=== PATIENT | female | born 1945 | race Caucasian/White ===

== ENCOUNTER 2020-06-07 08:29 | Day surgery (SDC) | payer MEDICARE ==
[~2020-06-07] VITALS: Wt 123.5 kg
[~2020-06-07 08:29] MED LIST: ABAC300; ASPI81CH PO; CARV6.25 PO; CEPH500 PO; IBUHYD PO; ITRA100; ROFE25; THYR60
== END 2020-06-07 10:45 | disposition home or self-care (01) ==
LOC: ORSCSDS 08:29
PROVIDERS: Surgery
PROC: 0DBL8ZX Excision of Transverse Colon, Via Natural or Artificial Opening Endoscopic, Diagnostic (ICD-10-PCS; principal; 2020-06-07 10:00)
DX: Z12.11 Encounter for screening for malignant neoplasm of colon (principal); Z86.010 Personal history of colon polyps; D12.3 Benign neoplasm of transverse colon; I10 Essential (primary) hypertension; E03.9 Hypothyroidism, unspecified; Z87.891 Personal history of nicotine dependence; E66.01 Morbid (severe) obesity due to excess calories; Z68.41 Body mass index [BMI] 40.0-44.9, adult
CPT/HCPCS: 88305; J2704; J7120

== ENCOUNTER 2024-05-03 12:57 | Inpatient (IN) | payer MEDICARE ==
[2024-05-03] VITALS (7 sets, daily range): BP systolic 139–157; BP diastolic 64–79
[~2024-05-03] VITALS: Ht 167.6 cm; Wt 108.3 kg
[2024-05-03] MEDS ORDERED: ALLO100 PO (13:20)
[2024-05-03] MEDS ORDERED: VENLAFAXINE HCL25 MG PO (13:20)
[2024-05-03 13:38] LABS: Mean Corpuscular HGB 39.2 pg (26.0-34.0); Mean Corpuscular HGB Conc 33.8 g/dL (31.5-36.5); Mean Corpuscular Volume 116 fL (80-100); NRBC ABSOLUTE 0.02 K/mm3 (0.00-0.02); NRBC Auto 1.1 /100 WBC (0.0-0.2); RDW Standard Deviation 64.1 fL (35.1-46.3); White Blood Cell Count 1.84 K/mm3 (4.00-11.30)
[2024-05-03 13:45] LABS: Hematocrit 13.9 % (33.0-51.0); Hemoglobin 4.7 g/dL (11.5-16.0)
[2024-05-03 13:46] LABS: Platelet Count 26 K/mm3 (150-400)
[2024-05-03 13:56] LABS: Albumin, Blood 2.7 g/dL (3.4-5.0); Albumin/Globulin Ratio 0.6 (0.8-1.8); Bilirubin, Total 1.3 mg/dL (0.1-1.0); Bun/Creatinine Ratio 24.2 (12.0-20.0); Calcium, Blood 8.9 mg/dL (8.5-10.1); Creatinine, Blood 0.99 mg/dL (0.40-1.00); Globulin, Blood 4.8 g/dL (2.2-4.0); Potassium, Blood 3.7 mmol/L (3.5-5.5); Total Protein, Blood 7.5 g/dL (6.4-8.2)
[2024-05-03 14:16] LABS: BASOPHILS ABSOLUTE MAN 0.03 K/mm3 (0.00-0.23); BASOPHILS PERCENT MAN 2 % (0-2); EOSINOPHILS PERCENT MAN 0 % (0-6); LYMPHOCYTES % ATYPICAL MANUAL 2 % (0-0); LYMPHOCYTES ABSOLUTE MAN 1.39 K/mm3 (0.84-5.20); LYMPHOCYTES PERCENT MAN 74 % (21-46); MONOCYTES ABSOLUTE MAN 0.11 K/mm3 (0.16-1.47); MONOCYTES PERCENT MAN 6 % (4-13); MYELOCYTE ABSOLUTE MAN 0.03 K/mm3 (0.00-0.00); MYELOCYTE PERCENT MAN 2 % (0-0); NEUTROPHILS ABSOLUTE MAN 0.25 K/mm3 (1.96-9.15); SEG NEUTROPHILS PERCENT MAN 14 % (41-73); TOTAL CELLS COUNTED 50
[2024-05-03] MEDS ORDERED: Acetaminophen 325 MG TABLET PO PRN (14:40)
[2024-05-03] MEDS ORDERED: FLU VACC TS2024-25(6MOS UP)/PF 45 MCG/0.5 ML SYRINGE IM SCH (14:45)
[2024-05-03 15:10] LABS: Percent Saturation 35.2 % (15.0-50.0)
[2024-05-03 15:28] LABS: Thyroid Stimulating Hormone 1.57 uIU/mL (0.360-4.800)
[2024-05-03] MEDS ORDERED: HydrALAZINE HCl 20 MG / ML 1ML Vial IV PRN (15:50)
[2024-05-03] MEDS ORDERED: NS 1,000 ML IV SCH (16:30)
[2024-05-03] MEDS ORDERED: ALLO300 PO (18:09)
[2024-05-03] MEDS ORDERED: Venlafaxine HCl75 M1 PO (18:10)
--- NOTE | 2024-05-03 18:51 | NUR ---
ADMIT/SHIFT SUMMARY: PT IS A NEW ADMIT, ARRIVING FROM ER AT APPROX 1700. PT IS A&Ox4, ANSWERING QUESTIONS APPROPRIATELY, COOPERATIVE W/CARE, DENIES SOB/CP. PT OOB x1 W/SBA FOR BSC, DENIED WEAKNESS OR SOB AT THAT TIME. O2 SATS >93% ON RA. SR ON MONITOR W/RATE 80s-90s. PT ARRIVES F/ER W/ FIRST UNIT OF PRBC INFUSING, THIS FIRST UNIT IS ALMOST COMPLETE. PROVIDER CONSULTATION HAS BEEN CALLED IN. PT HAS BEEN ORIENTED TO UNIT, CURRENTLY RESTING IN ROOM W/CALL LIGHT IN REACH.
[2024-05-03] MEDS ORDERED: NS 1,000 ML BAG IV PRN (19:40)
[2024-05-03] MEDS ORDERED: NS 250 ML IV SCH (19:45)
[2024-05-03] MEDS ORDERED: Allopurinol 300 MG Tab PO SCH (21:00)
[2024-05-03] MEDS ORDERED: Venlafaxine HCl 75 MG CapCR PO SCH (21:00)
[2024-05-04] VITALS (14 sets, daily range): BP systolic 116–177; BP diastolic 48–85
[2024-05-04 00:34] LABS: Hematocrit 19.5 % (33.0-51.0); Hemoglobin 6.7 g/dL (11.5-16.0)
[2024-05-04 00:47] LABS: International Normalized Ratio 1.3; Prothrombin Time Results 13.6 Sec (9.7-11.5)
[2024-05-04] MEDS ORDERED: NS 500 ML IV SCH (01:50)
[2024-05-04] MEDS ORDERED: Furosemide 10 MG / ML 2ML Vial IV ONE (02:50)
--- NOTE | 2024-05-04 03:06 | NUR ---
UPDATE THIS RN BREAK RN FOR PRIMARY NURSE. PRIMARY NURSE NOTIFIED THIS RN THAT PT RECEIVING PRBCS, PT WITH RECENT VITAL CHANGES, INCREASE IN RESPIRATORY RATE, NEED FOR PLACEMENT OF 2 LPM, LS WHEEZE/COARSE, AND NEW COUGH. PRIMARY RN HAD ALREADY PLACED CALL TO RESIDENT. THIS RN IN ROOM TO MONITOR PATIENT AND WAIT FOR RESIDENT TO ROUND. RESIDENT ARRIVED TO ROOM, ASSESSED PT; NEW ORDERS FOR PORTABLE CXR AND 20 MG IV LASIX AND RN TO CONTINUE MONITORING AND TO NOTIFY IF ANY OTHER CHANGES.
--- NOTE | 2024-05-04 03:26 | NUR ---
SHIFT UPDATE- Following 2nd unit of PRBCs, repeat Hgb 6.7. square dance caller resident notified, received an order for 2 additional units of PRBCs. Prior to starting 3rd Unit, it was noticed that the patient had developed a dry cough, course lung sounds, tachypnea, and slight hypoxia (91%RA). Patient with BL LE edema 2+. Resident notified of slightly elevated BNP and mild pulmonary edema on admission prior to any blood transfusions. MD ordered lasix x1 and stat chest xray, echo for the morning. No radiologist on tonight to read xray results. square dance caller resident notified that imaging can be pulled up on the computer in [employer] here. Will monitor patient for changes in fluid overload, currently receiving her 3rd unit of PRBCs with 1 more unit to go.
--- NOTE | 2024-05-04 04:15 | NUR ---
Purewick placed- external wicking system in place due to patient with dyspnea on exertion with activity. Patient encouraged to hold off on PO intake until further diuresis achieved.
[2024-05-04 05:04] LABS: Hematocrit 22.7 % (33.0-51.0); Mean Corpuscular HGB 35.6 pg (26.0-34.0); Mean Corpuscular HGB Conc 35.2 g/dL (31.5-36.5); NRBC ABSOLUTE 0.08 K/mm3 (0.00-0.02); NRBC Auto 3.1 /100 WBC (0.0-0.2); RDW Coefficient Variation 21.4 % (11.7-14.2); RDW Standard Deviation 73.8 fL (35.1-46.3); Red Blood Cell Count 2.25 M/mm3 (3.80-5.20); White Blood Cell Count 2.61 K/mm3 (4.00-11.30)
[2024-05-04 05:20] LABS: Mean Corpuscular Volume 101 fL (80-100)
[2024-05-04 05:25] LABS: Bun/Creatinine Ratio 29.4 (12.0-20.0); Calcium, Blood 8.8 mg/dL (8.5-10.1); Creatinine, Blood 0.85 mg/dL (0.40-1.00); Potassium, Blood 3.5 mmol/L (3.5-5.5)
[2024-05-04 05:26] LABS: Platelet Count 22 K/mm3 (150-400)
--- NOTE | 2024-05-04 05:59 | NUR ---
END OF SHIFT SUMMARY- Patient received a total of 3 units PRBC since admission to PCU, per night resident hold off on 4th unit since AM hgb is 8.0. IV lasix effective in helping the patient's WOB. Good uop, patient verbalizes feeling better. Per supercharger mechanic placed on neutropenic precautions based off absolute neutophil count from yesterday's CBC. Night resident notified of critical platelet count this morning of 22, no new orders. Patient up with SBA to BS, dyspnea on exertion present. BP improved after PRN hydralazine x 1 for SBP >160. Denies pain at this time. NSR/ST on telemetry. Pending heme/onc consult this morning for pancytopenia. Patient resting comfortably at this time. Placed on 2LNC but may be weaned today since diuresis has improved the patient's WOB.
[2024-05-04 07:07] LABS: Hemoglobin 7.3 g/dL (11.5-16.0)
[2024-05-04] MEDS ORDERED: Furosemide 10 MG / ML 2ML Vial IV SCH (09:00)
[2024-05-04 13:33] LABS: Hematocrit 18.9 % (33.0-51.0); Hemoglobin 6.7 g/dL (11.5-16.0)
--- NOTE | 2024-05-04 14:56 | NUR ---
SHIFT NOTE: PT A/OX4 ABLE TO USE CALL LIGHT TO MAKE NEEDS KNOWN. SHE IS PLEASANT AND COOPERATIVE WITH CARE. SHE HAS RESTED MOST OF THE DAY AFTER BEING UP MOST OF THE NIGHT. SHE IS ON 1-2L NC TO MAINTAIN SPO2>90%. SHE IS ON TELE SHOWING NSR/ST 80-110. SHE DENIES CP OR SOB. SHE AMBULATES WITH 1P ASSIST TO THE BEDSIDE COMMODE. DR. DSOUZA NOTIFIED OF LOW HBG AND ORDERED THE ADMINISTRATION OF ONE UNIT OF RBCS. SHE DENIES PAIN T/O SHIFT. VSS. REPORT GIVEN TO NAYLA WANG TO RESUME CARE.
--- NOTE | 2024-05-04 18:20 | NUR ---
SHIFT SUMMARY PT RECEIVED UNIT OF PRBC, TOLERATED WELL. NO OTHER ACUTE CHANGES NOTED. WILL CONTINUE TO MONITOR
[2024-05-04 20:36] LABS: BASOPHILS ABSOLUTE AUTO 0.02 K/mm3 (0.00-0.23); BASOPHILS PERCENT AUTO 1 % (0-2); EOSINOPHILS ABSOLUTE AUTO 0.01 K/mm3 (0.00-0.68); EOSINOPHILS PERCENT AUTO 0 % (0-6); Hematocrit 22.4 % (33.0-51.0); Hemoglobin 8.1 g/dL (11.5-16.0); Mean Corpuscular HGB 36.5 pg (26.0-34.0); Mean Corpuscular HGB Conc 36.2 g/dL (31.5-36.5); Mean Corpuscular Volume 101 fL (80-100); NRBC ABSOLUTE 0.08 K/mm3 (0.00-0.02); NRBC Auto 3.1 /100 WBC (0.0-0.2); RDW Coefficient Variation 21.9 % (11.7-14.2); RDW Standard Deviation 76.1 fL (35.1-46.3); Red Blood Cell Count 2.22 M/mm3 (3.80-5.20); White Blood Cell Count 2.54 K/mm3 (4.00-11.30)
[2024-05-04 20:42] LABS: IMMATURE GRAN ABSOLUTE AUTO 0.21 K/mm3 (0.00-0.10); IMMATURE GRAN PERCENT AUTO 8 % (0-1); LYMPHOCYTES ABSOLUTE AUTO 0.69 K/mm3 (0.84-5.20); LYMPHOCYTES PERCENT AUTO 27 % (21-46); MONOCYTES ABSOLUTE AUTO 0.89 K/mm3 (0.16-1.47); MONOCYTES PERCENT AUTO 35 % (4-13); NEUTROPHILS ABSOLUTE AUTO 0.72 K/mm3 (1.96-9.15); NEUTROPHILS PERCENT AUTO 28 % (41-73); Platelet Count 24 K/mm3 (150-400)
[2024-05-04 21:25] LABS: Hematocrit 21.5 % (33.0-51.0); Hemoglobin 7.6 g/dL (11.5-16.0)
[2024-05-04 21:48] LABS: Percent Saturation 54.5 % (15.0-50.0)
--- NOTE | 2024-05-04 22:36 | NUR ---
Patient asking about hematology consult. Per notes, consult was called in by day RN on 05/03 in the afternoon. This RN called the answering service for Dr. Avila to confirm consult was called in. Per answering service it will be placed first thing in the morning. Patient updated.
[2024-05-05 00:04] VITALS: BP 118/55
[2024-05-05 03:57] VITALS: BP 154/60
[2024-05-05 04:16] LABS: Mean Corpuscular HGB 36.2 pg (26.0-34.0); Mean Corpuscular HGB Conc 36.4 g/dL (31.5-36.5); Mean Corpuscular Volume 100 fL (80-100); NRBC ABSOLUTE 0.02 K/mm3 (0.00-0.02); NRBC Auto 0.7 /100 WBC (0.0-0.2); RDW Coefficient Variation 22.3 % (11.7-14.2); RDW Standard Deviation 76.4 fL (35.1-46.3); Red Blood Cell Count 2.21 M/mm3 (3.80-5.20); White Blood Cell Count 2.77 K/mm3 (4.00-11.30)
[2024-05-05 04:26] LABS: Platelet Count 17 K/mm3 (150-400)
--- NOTE | 2024-05-05 05:44 | NUR ---
END OF SHIFT SUMMARY- Uneventful night, VSS on 1LNC, getting OOB with SBA assist to BSC, voiding without difficulty. No BM nights, occult stool pending. Hgb this am is 8.0, Platelets continue to be low at 17. Hematology consult pending for pancytopenia. Patient denies pain. NSR on telemetry. No signs of fluid overload this morning. A&Ox4, but [place]. Tolerating a regular diet but says she has had a poor appetite lately. On neutrapenic precautions due to low ANC.
[2024-05-05 06:09] LABS: Bun/Creatinine Ratio 27.7 (12.0-20.0); Calcium, Blood 8.6 mg/dL (8.5-10.1); Creatinine, Blood 0.83 mg/dL (0.40-1.00); Potassium, Blood 3.3 mmol/L (3.5-5.5)
[2024-05-05 06:11] LABS: BAND PERCENT MAN 1 % (0-8); BASOPHILS ABSOLUTE MAN 0.02 K/mm3 (0.00-0.23); BASOPHILS PERCENT MAN 1 % (0-2); BLASTS PERCENT MAN 1 % (0-0); EOSINOPHILS ABSOLUTE MAN 0.02 K/mm3 (0.00-0.68); EOSINOPHILS PERCENT MAN 1 % (0-6); LYMPHOCYTES % ATYPICAL MANUAL 2 % (0-0); LYMPHOCYTES ABSOLUTE MAN 1.57 K/mm3 (0.84-5.20); LYMPHOCYTES PERCENT MAN 55 % (21-46); METAMYELOCYTE ABSOLUTE MAN 0.02 K/mm3 (0.00-0.00); METAMYELOCYTE PERCENT MAN 1 % (0-0); MONOCYTES ABSOLUTE MAN 0.55 K/mm3 (0.16-1.47); MONOCYTES PERCENT MAN 20 % (4-13); MYELOCYTE ABSOLUTE MAN 0.13 K/mm3 (0.00-0.00); MYELOCYTE PERCENT MAN 5 % (0-0); NEUTROPHILS ABSOLUTE MAN 0.33 K/mm3 (1.96-9.15); OTHER CELL PERCENT MAN 2 % (0-0); SEG NEUTROPHILS PERCENT MAN 11 % (41-73); TOTAL CELLS COUNTED 100
--- NOTE | 2024-05-05 06:28 | NUR ---
Critical platelet count- Notified Dr. Ramos of critical platelet count of 17. Yesterday the platelet count was 22. Per MD pass on to day shift as patient currently has no active signs of bleeding. Awaiting workup by hematology. No new orders.
[2024-05-05 07:44] VITALS: BP 131/70
[2024-05-05] MEDS ORDERED: Potassium Chloride 20 MEQ TabCR PO ONE (08:45)
[2024-05-05] MEDS ORDERED: Furosemide 10 MG/ML 4ML Vial IV SCH (09:00)
[2024-05-05 15:36] VITALS: BP 146/67
[2024-05-05] MEDS ORDERED: LevoFLOXacin 750 MG Tab PO SCH ×2 (17:10)
--- NOTE | 2024-05-05 17:58 | NUR ---
SHIFT SUMMARY PT IS ALERT AND ORIENTED X 4, SHE IS GAMBELL AND HAS BEEN ABLE TO MAKE HER NEEDS KNOWN. VSS, SPO2 MAINTAINED >95% VIA RA. SHE HAS DENIED FEELING CP/PRESSURE WELL ANY LIGHTHEADEDNESS/DIZZINESS. SHE REPORTED FEELING SOB UPON EXERTION. SHE HAS BEEN A 1 PERSON ASSIST W/ FWW IN ROOM. DR. JUSTIN FROM HEMATOLOGY CAME TO BEDSIDE AT APPROX. 1630. CALL LIGHT IS W/IN REACH.
[2024-05-05 20:29] VITALS: BP 150/70
--- NOTE | 2024-05-05 20:37 | NUR ---
PT AOX4 IN BED, [place] W/O HEARING AIDS IN. ABLE TO HEAR WELL WITH HEARING AIDS IN. PT IS SBA W/WALKER. PT IS ON ROOM AIR. NO C/P OR SOB. PT IS IN REVERSE ISOLATION PRECAUTIONS D/T LOW NEUTROPHILS. VITAL SIGNS STABLE. PT ABLE TO MAKE NEEDS KNOWN AND ABLE TO USE CALL LIGHT. REPORT GIVEN TO KATHLEEN MILLS ON MED[facility]. PT TO BE TRANSPORTED BY BED WITH ALL BELONGINGS AND PAPERWORK.
[2024-05-05 20:56] VITALS: BP 148/67
[2024-05-06] VITALS (7 sets, daily range): BP systolic 137–150; BP diastolic 51–76
--- NOTE | 2024-05-06 05:18 | NUR ---
SHIFT SUMMARY RECEIVED PT FROM PCU APPROX 2100. A&O X4, VSS. MEDICATED FOR IRVIN X1. UP WITH SBA AND WALKER. PT SOB WITH ACTIVITY. EDEMA REMAINS TO BLE. SCD'S IN PLACE MOST OF NIGHT- PT REQUESTED REMOVAL OF SCD'S WITH CHARTER PILOT VITAL SIGNS. HEARING AIDS AT BEDSIDE. CALL LIGHT WITHIN REACH. SIDE RAILS UP X2. NEUTROPENIC PRECAUTIONS MAINTAINED.
[2024-05-06 05:43] LABS: Hematocrit 21.9 % (33.0-51.0); Hemoglobin 7.7 g/dL (11.5-16.0); Mean Corpuscular HGB 35.2 pg (26.0-34.0); Mean Corpuscular HGB Conc 35.2 g/dL (31.5-36.5); Mean Corpuscular Volume 100 fL (80-100); NRBC ABSOLUTE 0.02 K/mm3 (0.00-0.02); NRBC Auto 0.7 /100 WBC (0.0-0.2); RDW Coefficient Variation 20.7 % (11.7-14.2); RDW Standard Deviation 73.5 fL (35.1-46.3); Red Blood Cell Count 2.19 M/mm3 (3.80-5.20)
[2024-05-06 05:50] LABS: Platelet Count 13 K/mm3 (150-400)
[2024-05-06 06:07] LABS: Bun/Creatinine Ratio 28.1 (12.0-20.0); Calcium, Blood 8.3 mg/dL (8.5-10.1); Creatinine, Blood 0.71 mg/dL (0.40-1.00); Potassium, Blood 3.2 mmol/L (3.5-5.5)
[2024-05-06 06:21] LABS: BAND PERCENT MAN 4 % (0-8); BASOPHILS PERCENT MAN 0 % (0-2); BLASTS PERCENT MAN 24 % (0-0); EOSINOPHILS PERCENT MAN 0 % (0-6); LYMPHOCYTES % ATYPICAL MANUAL 4 % (0-0); LYMPHOCYTES ABSOLUTE MAN 1.07 K/mm3 (0.84-5.20); LYMPHOCYTES PERCENT MAN 33 % (21-46); MONOCYTES PERCENT MAN 14 % (4-13); MYELOCYTE ABSOLUTE MAN 0.02 K/mm3 (0.00-0.00); MYELOCYTE PERCENT MAN 1 % (0-0); NEUTROPHILS ABSOLUTE MAN 0.63 K/mm3 (1.96-9.15); PLASMA CELL ABSOLUTE MAN 0.02 K/mm3 (0.00-0.00); PLASMA CELLS PERCENT MAN 1 % (0-0); PROMYELOCYTE ABSOLUTE MAN 0.02 K/mm3 (0.00-0.00); PROMYELOCYTE PERCENT MAN 1 % (0-0); SEG NEUTROPHILS PERCENT MAN 18 % (41-73); TOTAL CELLS COUNTED 100
[2024-05-06] MEDS ORDERED: Potassium Chloride 20 MEQ TabCR PO ONE (08:10)
[2024-05-06] MEDS ORDERED: Magnesium Hydroxide Conc 10 ML UDC PO PRN (11:05)
[2024-05-06] MEDS ORDERED: Bisacodyl 10 MG Supp PR PRN (11:05)
--- NOTE | 2024-05-06 16:24 | NUR ---
PT RECEIVED 1 UNIT PLATELETS. CURRENTLY RESTING WITH EYES CLOSED. PT DYSPNIC WITH EXERSION, INDEPENDENT WITH WALKER. TELE, NS-ST. ALERT AND ORIENTED X4 AND ABLE TO MAKE NEEDS KNOWN. PLAN TO DISCHARGE TOMORROW
[2024-05-06] MEDS ORDERED: Sennosides 8.6 MG Tab PO SCH (21:00)
[2024-05-06] MEDS ORDERED: Docusate Sodium 100 MG Cap PO SCH (21:00)
[2024-05-07 04:23] VITALS: BP 140/65
[2024-05-07 05:48] LABS: Mean Corpuscular HGB 35.2 pg (26.0-34.0); Mean Corpuscular HGB Conc 34.8 g/dL (31.5-36.5); Mean Corpuscular Volume 101 fL (80-100); RDW Coefficient Variation 20.2 % (11.7-14.2); Red Blood Cell Count 2.27 M/mm3 (3.80-5.20); White Blood Cell Count 3.63 K/mm3 (4.00-11.30)
[2024-05-07 06:03] LABS: Platelet Count 16 K/mm3 (150-400)
[2024-05-07 06:24] LABS: Calcium, Blood 8.6 mg/dL (8.5-10.1); Creatinine, Blood 0.78 mg/dL (0.40-1.00); Potassium, Blood 3.3 mmol/L (3.5-5.5)
--- NOTE | 2024-05-07 06:41 | NUR ---
SHIFT SUMMARY. PATIENT IS A&OX4. PATIENT CALLS APPROPRIATELY AND IS ABLE TO MAKE HER NEEDS KNOWN. PATIENT IS INDEPENDENT IN ROOM. STOOL SAMPLE COLLECTED AND SENT TO LAB. PATIENTS PLT'S ARE AT 16 THIS AM WHICH IS IMPROVED FROM YESTERDAY MORNING. PATIENT SLEPT WELL T/O NIGHT WITH RESPIRATIONS EQUAL AND UNLABORED. PATIENT HAS TELE ON WITH LEADS IN PLACE. NO EVENTS NOTED FROM TELE. BED IS LOCKED IN THE LOWEST POSITION. CALL LIGHT AND WALKER ARE WITHIN REACH. CARE IS ONGOING.
[2024-05-07 06:49] LABS: BAND PERCENT MAN 4 % (0-8); BASOPHILS PERCENT MAN 0 % (0-2); BLASTS PERCENT MAN 25 % (0-0); EOSINOPHILS PERCENT MAN 0 % (0-6); LYMPHOCYTES % ATYPICAL MANUAL 5 % (0-0); LYMPHOCYTES ABSOLUTE MAN 1.45 K/mm3 (0.84-5.20); LYMPHOCYTES PERCENT MAN 35 % (21-46); MONOCYTES ABSOLUTE MAN 0.58 K/mm3 (0.16-1.47); MONOCYTES PERCENT MAN 16 % (4-13); MYELOCYTE ABSOLUTE MAN 0.21 K/mm3 (0.00-0.00); MYELOCYTE PERCENT MAN 6 % (0-0); NEUTROPHILS ABSOLUTE MAN 0.47 K/mm3 (1.96-9.15); SEG NEUTROPHILS PERCENT MAN 9 % (41-73); TOTAL CELLS COUNTED 100
[2024-05-07 07:49] VITALS: BP 140/70
[2024-05-07] MEDS ORDERED: Potassium Chloride 20 MEQ TabCR PO ONE (08:30)
[2024-05-07 12:26] LABS: Stool Occult Blood Guaiac 1 Neg (Neg)
[2024-05-07 15:27] VITALS: BP 152/62
--- NOTE | 2024-05-07 17:57 | NUR ---
PT REPORTS NO BM TODAY. TOTAL OF 6 DAYS. BOWEL CARE STARTED YESTERDAY. PT IS ABLE TO MAKE NEED KNOWN. NO ACUTE CHANGES THIS SHIFT. PLAN TO KEEP OVERNIGHT IN ORDER TO MONITOR PLT ALONG WITH OTHER LABS. PT IS ALERT AND ORIENTED X4, INDEPENDENT WITH FWW, YARELIS BALES.
[2024-05-07 19:34] VITALS: BP 143/69
--- NOTE | 2024-05-08 01:05 | NUR ---
TELE-HOSPITALIST CONTACTED. TELE NOTIFIED THIS RN OF PATIENT HAVING A 6 BEAT RUN OF SVT. PATIENT ASSESSED. PATIENT ASYMPTOMATIC, SITTING UP IN BED WATCHING TV. PATIENT DENIES ANY CHANGES. HOSPITALIST CONTACTED. HOSPITALIST DR. WILSON CONTACTED AND NOTIFIED OF PATIENTS 6 BEAT RUN SVT-PATIENT ASYMPTOMATIC. NO ORDERED CHANGES AT THIS TIME.
[2024-05-08 04:15] VITALS: BP 125/73
--- NOTE | 2024-05-08 04:39 | NUR ---
SHIFT SUMMARY. PATIENT IS A&OX4. PATIENT CALLS APPROPRIATELY AND MAKES HER NEEDS KNOWN. PATIENT IS INDEPENDENT TO BATHROOM WITH FWW. PATIENT HAS SHOWER TONIGHT, LINENS CHANGED. PATIENT HAD RUN OF SVT TONIGHT-SEE PREVIOUS NOTES. PATIENT POSSIBLE TO DISCHARGE TODAY PENDING LAB RESULTS. BED IS LOCKED IN THE LOWEST POSITION WITH CALL LIGHT IN REACH. CARE IS ONGOING.
[2024-05-08 05:31] LABS: Hematocrit 24.3 % (33.0-51.0); Hemoglobin 8.2 g/dL (11.5-16.0); Mean Corpuscular HGB 34.9 pg (26.0-34.0); Mean Corpuscular HGB Conc 33.7 g/dL (31.5-36.5); Mean Corpuscular Volume 103 fL (80-100); RDW Coefficient Variation 19.9 % (11.7-14.2); RDW Standard Deviation 74.3 fL (35.1-46.3); Red Blood Cell Count 2.35 M/mm3 (3.80-5.20); White Blood Cell Count 3.86 K/mm3 (4.00-11.30)
[2024-05-08 05:42] LABS: Platelet Count 14 K/mm3 (150-400)
[2024-05-08 05:59] LABS: Bun/Creatinine Ratio 21.6 (12.0-20.0); Calcium, Blood 8.7 mg/dL (8.5-10.1); Creatinine, Blood 0.79 mg/dL (0.40-1.00); Potassium, Blood 3.6 mmol/L (3.5-5.5)
[2024-05-08 06:01] LABS: BASOPHILS PERCENT MAN 0 % (0-2); BLASTS PERCENT MAN 19 % (0-0); EOSINOPHILS PERCENT MAN 0 % (0-6); LYMPHOCYTES % ATYPICAL MANUAL 2 % (0-0); LYMPHOCYTES ABSOLUTE MAN 2.31 K/mm3 (0.84-5.20); LYMPHOCYTES PERCENT MAN 58 % (21-46); MONOCYTES ABSOLUTE MAN 0.42 K/mm3 (0.16-1.47); MONOCYTES PERCENT MAN 11 % (4-13); MYELOCYTE ABSOLUTE MAN 0.15 K/mm3 (0.00-0.00); MYELOCYTE PERCENT MAN 4 % (0-0); NEUTROPHILS ABSOLUTE MAN 0.23 K/mm3 (1.96-9.15); SEG NEUTROPHILS PERCENT MAN 6 % (41-73); TOTAL CELLS COUNTED 100
[2024-05-08 07:20] VITALS: BP 133/68
[2024-05-08] MEDS ORDERED: Potassium Chloride 10 Meq Tablet SA PO SCH (08:00)
[2024-05-08] MEDS ORDERED: Furosemide 40 MG Tab PO SCH (09:00)
[2024-05-08] MEDS ORDERED: Bisacodyl 5 MG TabEC PO STA (10:11)
[2024-05-08] MEDS ORDERED: Lactulose 20 GM/30 ML UDC PO ONE (10:15)
--- NOTE | 2024-05-08 12:39 | NUR ---
PATIENT HAD BROWN FORMED MEDIUM STOOL.
--- NOTE | 2024-05-08 13:29 | NUR ---
PT DID HAVE BOWEL MOVEMENT WHILE I WAS ON BREAK. CHARTED BY JAMES RN. DR. ECHEVERRIA NOTIFIED. DISHCARGE ORDERS TO FOLLOW
[2024-05-08] MEDS ORDERED: DOCU100 PO (14:04)
[2024-05-08] MEDS ORDERED: DULCOLAX400 MG/5 M PO (14:04)
[2024-05-08] MEDS ORDERED: SENN187 PO (14:05)
--- NOTE | 2024-05-08 16:41 | NUR ---
LATE ENTRY PT DISCHARGED HOME. DISCHARGE INSTRUCTIONS DISCUSSED WITH PT. FOLLOW UP APPT WITH DR. JUSTIN SCHEDULED FOR Apr, AT 1500. THIS RN FAXED REQUESTED INFORMATION TO [facility]. FAX INFORMAITON IN FRONT OF CHART. PT PICKED UP BY FRIEND. EMPHASIZED IMPORTANCE OF FOLLOW UP APPT. PT VERBALIZED UNDERSTANDING. EDUCATED PT ON USE OF BOWEL CARE REGIMEN TO ASSIST IN PREVENTING ONGOING CONSTIPATION.
[2024-05-08 18:58] LABS: IMMUNOGLOBULIN A 177 mg/dL (68-408); IMMUNOGLOBULIN G 1238 mg/dL (768-1632); IMMUNOGLOBULIN M 978 mg/dL (35-263)
[2024-05-08 19:48] LABS: ALPHA 1 GLOBULIN 0.52 g/dL (0.19-0.46); ALPHA 2 GLOBULIN 0.76 g/dL (0.48-1.05); BETA GLOBULIN 0.61 g/dL (0.48-1.10); GAMMA 1.81 g/dL (0.62-1.51); IMMUNOFIXATION REFLEX IFE Done; TOTAL PROTEIN,SERUM 6.2 g/dL (6.3-8.2)
== END 2024-05-08 15:29 | disposition home or self-care (01) | DRG 834 ==
LOC: ER 12:57 → PCU 14:41 → MEDS 14:41 → PCU 16:52 → MEDS 05-05 20:55
PROVIDERS: Emergency Medicine; Family Medicine; Internal Medicine Hematology & Oncology; ADMIT Internal Medicine
PROC: 30233N1 Transfusion of Nonautologous Red Blood Cells into Peripheral Vein, Percutaneous Approach (ICD-10-PCS; principal; 2024-05-03)
PROC: 30233R1 Transfusion of Nonautologous Platelets into Peripheral Vein, Percutaneous Approach (ICD-10-PCS; 2024-05-03)
DX: C92.00 Acute myeloblastic leukemia, not having achieved remission (principal); I50.31 Acute diastolic (congestive) heart failure; D61.818 Other pancytopenia; F32.A Depression, unspecified; I11.0 Hypertensive heart disease with heart failure; K59.00 Constipation, unspecified; M10.9 Gout, unspecified; Z85.3 Personal history of malignant neoplasm of breast; Z90.49 Acquired absence of other specified parts of digestive tract; Z79.899 Other long term (current) drug therapy; Z98.890 Other specified postprocedural states; Z98.51 Tubal ligation status; Z90.710 Acquired absence of both cervix and uterus; Z87.891 Personal history of nicotine dependence; Z60.2 Problems related to living alone
CPT/HCPCS: 36415; 36430; 71045; 71046; 80048; 80053; 82272; 82607; 82728; 82746; 82784; 83521; 83540; 83550; 83615; 83880; 84155; 84165; 84443; 85014; 85018; 85025; 85027; 85060; 85610; 86334; 86850; 86880; 86900; 86901; 86923; 88184; 88185; 93005; 93010; 93306; 94760; 99285-25; A9270; J0360; J1940; J7030; J7040; P9016; P9035

== ENCOUNTER 2024-05-12 07:14 | Day surgery (SDC) | payer MEDICARE ==
[2024-05-11 17:25] LABS: Hematocrit 28.1 % (33.0-51.0); Hemoglobin 9.3 g/dL (11.5-16.0); Mean Corpuscular HGB 34.8 pg (26.0-34.0); Mean Corpuscular HGB Conc 33.1 g/dL (31.5-36.5); Mean Corpuscular Volume 105 fL (80-100); RDW Coefficient Variation 19.1 % (11.7-14.2); RDW Standard Deviation 72.9 fL (35.1-46.3); Red Blood Cell Count 2.67 M/mm3 (3.80-5.20)
[2024-05-11 18:12] LABS: Platelet Count 14 K/mm3 (150-400)
[~2024-05-12 07:14] MED LIST changes: +ALLO100 PO; +ALLO300 PO; +DOCU100 PO; +DULCOLAX400 MG/5 M PO; +SENN187 PO; +VENLAFAXINE HCL25 MG PO; +Venlafaxine HCl75 M1 PO
[2024-05-12] MEDS ORDERED: NS 250 ML IV SCH (07:15)
[2024-05-12 09:43] VITALS: BP 137/59
[2024-05-12 09:54] VITALS: BP 133/71
[2024-05-12 11:04] VITALS: BP 135/66
== END 2024-05-12 11:01 | disposition home or self-care (01) ==
LOC: ATC 07:14
PROVIDERS: Internal Medicine Hematology & Oncology
DX: C92.00 Acute myeloblastic leukemia, not having achieved remission (principal); D61.818 Other pancytopenia; Z87.891 Personal history of nicotine dependence; Z79.899 Other long term (current) drug therapy; Z91.048 Other nonmedicinal substance allergy status; Z85.3 Personal history of malignant neoplasm of breast; Z90.710 Acquired absence of both cervix and uterus
CPT/HCPCS: 36415; 36430; 85027; 86900; 86901; J7050; P9035

== ENCOUNTER 2024-05-21 02:30 | Day surgery (SDC) | payer MEDICARE ==
[2024-05-18 12:47] LABS: Hematocrit 21.9 % (33.0-51.0); Hemoglobin 7.4 g/dL (11.5-16.0); Mean Corpuscular HGB 34.7 pg (26.0-34.0); Mean Corpuscular HGB Conc 33.8 g/dL (31.5-36.5); Mean Corpuscular Volume 103 fL (80-100); RDW Coefficient Variation 19.1 % (11.7-14.2); RDW Standard Deviation 72.6 fL (35.1-46.3); Red Blood Cell Count 2.13 M/mm3 (3.80-5.20)
[2024-05-18 13:18] LABS: Platelet Count 13 K/mm3 (150-400)
[2024-05-18 17:12] LABS: BASOPHILS ABSOLUTE MAN 0.09 K/mm3 (0.00-0.23); BASOPHILS PERCENT MAN 1 % (0-2); EOSINOPHILS PERCENT MAN 0 % (0-6); LYMPHOCYTES % ATYPICAL MANUAL 16 % (0-0); LYMPHOCYTES ABSOLUTE MAN 4.83 K/mm3 (0.84-5.20); LYMPHOCYTES PERCENT MAN 36 % (21-46); METAMYELOCYTE ABSOLUTE MAN 0.09 K/mm3 (0.00-0.00); METAMYELOCYTE PERCENT MAN 1 % (0-0); MONOCYTES ABSOLUTE MAN 0.83 K/mm3 (0.16-1.47); MONOCYTES PERCENT MAN 9 % (4-13); NEUTROPHILS ABSOLUTE MAN 0.18 K/mm3 (1.96-9.15); SEG NEUTROPHILS PERCENT MAN 2 % (41-73); TOTAL CELLS COUNTED 100
[2024-05-20 14:30] LABS: BLASTS PERCENT MAN 35 % (0-0)
[2024-05-21] MEDS ORDERED: NS 250 ML IV SCH (06:45)
[2024-05-21] MEDS ORDERED: VENCLEXTA100 MG PO (13:43)
[2024-05-21] MEDS ORDERED: Diflucan100 MG PO (13:44)
[2024-05-21] MEDS ORDERED: [UNRECOGNIZED DRUG - CODE] PO (13:44)
[2024-05-21 13:49] VITALS: BP 147/51
[2024-05-21 14:07] VITALS: BP 127/61
[2024-05-21 14:56] VITALS: BP 103/60
[2024-05-21 15:16] VITALS: BP 120/59
[2024-05-21 16:34] VITALS: BP 115/61
[2024-05-22] MEDS ORDERED: ACYC400 PO (13:16)
== END 2024-05-21 16:38 | disposition home or self-care (01) ==
LOC: ATC 02:30 → EDSTATUS 13:30 → ATC 16:38
PROVIDERS: Internal Medicine Hematology & Oncology
DX: C92.00 Acute myeloblastic leukemia, not having achieved remission (principal); Z87.891 Personal history of nicotine dependence; Z85.3 Personal history of malignant neoplasm of breast; Z79.899 Other long term (current) drug therapy; Z91.048 Other nonmedicinal substance allergy status
CPT/HCPCS: 36415; 36430; 85025; 86850; 86900; 86901; 86923; J7050; P9016; P9035

== ENCOUNTER 2024-05-22 12:00 | Emergency (ER) | payer MEDICARE ==
[~2024-05-22] VITALS: Ht 167.6 cm; Wt 104.3 kg
[~2024-05-22 12:00] MED LIST changes: +Diflucan100 MG PO; +VENCLEXTA100 MG PO; +[UNRECOGNIZED DRUG - CODE] PO
[2024-05-22 12:31] LABS: Hematocrit 22.7 % (33.0-51.0); Hemoglobin 7.8 g/dL (11.5-16.0); Mean Corpuscular HGB 34.1 pg (26.0-34.0); Mean Corpuscular HGB Conc 34.4 g/dL (31.5-36.5); Mean Corpuscular Volume 99 fL (80-100); Mean Platelet Volume 11.5 fL (9.1-12.4); RDW Coefficient Variation 20.7 % (11.7-14.2); Red Blood Cell Count 2.29 M/mm3 (3.80-5.20)
[2024-05-22 12:53] LABS: Albumin, Blood 2.4 g/dL (3.4-5.0); Albumin/Globulin Ratio 0.5 (0.8-1.8); Bun/Creatinine Ratio 15.5 (12.0-20.0); Calcium, Blood 8.8 mg/dL (8.5-10.1); Creatinine, Blood 0.84 mg/dL (0.40-1.00); Globulin, Blood 5.1 g/dL (2.2-4.0); Potassium, Blood 3.7 mmol/L (3.5-5.5); Total Protein, Blood 7.5 g/dL (6.4-8.2)
[2024-05-22 13:09] LABS: Platelet Count 22 K/mm3 (150-400)
[2024-05-22] MEDS ORDERED: ACYC400 PO (13:16)
[2024-05-22 14:16] LABS: BASOPHILS PERCENT MAN 0 % (0-2); BLASTS PERCENT MAN 26 % (0-0); EOSINOPHILS PERCENT MAN 0 % (0-6); LYMPHOCYTES ABSOLUTE MAN 16.46 K/mm3 (0.84-5.20); LYMPHOCYTES PERCENT MAN 59 % (21-46); METAMYELOCYTE ABSOLUTE MAN 0.55 K/mm3 (0.00-0.00); METAMYELOCYTE PERCENT MAN 2 % (0-0); MONOCYTES ABSOLUTE MAN 0.83 K/mm3 (0.16-1.47); MONOCYTES PERCENT MAN 3 % (4-13); MYELOCYTE ABSOLUTE MAN 0.55 K/mm3 (0.00-0.00); MYELOCYTE PERCENT MAN 2 % (0-0); NEUTROPHILS ABSOLUTE MAN 2.23 K/mm3 (1.96-9.15); SEG NEUTROPHILS PERCENT MAN 8 % (41-73); TOTAL CELLS COUNTED 100
[2024-05-22] MEDS ORDERED: NS 1,000 ML IV SCH (15:55)
[2024-05-22 16:15] VITALS: BP 122/66
== END 2024-05-22 17:20 | disposition home or self-care (01) ==
LOC: ER 12:00
PROVIDERS: Physician Assistant
DX: C95.00 Acute leukemia of unspecified cell type not having achieved remission (principal); R07.9 Chest pain, unspecified; R06.02 Shortness of breath; I11.0 Hypertensive heart disease with heart failure; I50.30 Unspecified diastolic (congestive) heart failure; Z79.899 Other long term (current) drug therapy; Z91.048 Other nonmedicinal substance allergy status
CPT/HCPCS: 71046; 71260; 80053; 83880; 84484; 85025; 85379; 93005; 93010; 99285-25; J7030; Q9967

== ENCOUNTER 2024-05-26 02:51 | Day surgery (SDC) | payer MEDICARE ==
[2024-05-25 13:31] LABS: Hematocrit 21.3 % (33.0-51.0); Hemoglobin 7.3 g/dL (11.5-16.0); Mean Corpuscular HGB 34.6 pg (26.0-34.0); Mean Corpuscular HGB Conc 34.3 g/dL (31.5-36.5); Mean Corpuscular Volume 101 fL (80-100); RDW Coefficient Variation 20.8 % (11.7-14.2); RDW Standard Deviation 76.8 fL (35.1-46.3); Red Blood Cell Count 2.11 M/mm3 (3.80-5.20); White Blood Cell Count 24.25 K/mm3 (4.00-11.30)
[2024-05-25 13:37] LABS: Platelet Count 9 K/mm3 (150-400)
[2024-05-25 14:26] LABS: BASOPHILS PERCENT MAN 0 % (0-2); BLASTS PERCENT MAN 39 % (0-0); EOSINOPHILS PERCENT MAN 0 % (0-6); LYMPHOCYTES ABSOLUTE MAN 6.54 K/mm3 (0.84-5.20); LYMPHOCYTES PERCENT MAN 27 % (21-46); METAMYELOCYTE ABSOLUTE MAN 0.97 K/mm3 (0.00-0.00); METAMYELOCYTE PERCENT MAN 4 % (0-0); MONOCYTES ABSOLUTE MAN 0.97 K/mm3 (0.16-1.47); MONOCYTES PERCENT MAN 4 % (4-13); MYELOCYTE ABSOLUTE MAN 5.09 K/mm3 (0.00-0.00); MYELOCYTE PERCENT MAN 21 % (0-0); NEUTROPHILS ABSOLUTE MAN 0.97 K/mm3 (1.96-9.15); PROMYELOCYTE ABSOLUTE MAN 0.24 K/mm3 (0.00-0.00); PROMYELOCYTE PERCENT MAN 1 % (0-0); SEG NEUTROPHILS PERCENT MAN 4 % (41-73); TOTAL CELLS COUNTED 100
[~2024-05-26 02:51] MED LIST changes: +ACYC400 PO
[2024-05-26] MEDS ORDERED: NS 250 ML IV SCH (07:00)
[2024-05-26] MEDS ORDERED: HYDROCODONE-AC1 EA19 PO (07:45)
[2024-05-26] MEDS ORDERED: TRAM50 PO (07:45)
== END 2024-05-26 23:00 ==
LOC: ATC 02:51
PROVIDERS: Internal Medicine Hematology & Oncology
DX: C92.00 Acute myeloblastic leukemia, not having achieved remission (principal); I11.0 Hypertensive heart disease with heart failure; I50.31 Acute diastolic (congestive) heart failure; F32.A Depression, unspecified; Z87.891 Personal history of nicotine dependence; Z79.899 Other long term (current) drug therapy; Z91.048 Other nonmedicinal substance allergy status; Z98.51 Tubal ligation status; Z90.710 Acquired absence of both cervix and uterus; Z90.49 Acquired absence of other specified parts of digestive tract
CPT/HCPCS: 36415; 85025; 86850; 86900; 86901; 86923